=== PATIENT | female | born 1980 | race Caucasian/White ===

== ENCOUNTER 2023-06-08 13:36 | Emergency (ER) | payer SELFPAY ==
[~2023-06-08] VITALS: Ht 154.9 cm; Wt 72.6 kg
[2023-06-08 13:40] VITALS: BP 108/57; PULSE 90; RESP 15; TEMP 97.5; O2SAT 100
[2023-06-08 14:24] LABS: BASOPHILS % 0.5 % (0.0-2.0); EOSINOPHILS % 0.7 % (0.0-5.0); HEMATOCRIT. 32.6 % (36.0-48.0); LYMPHOCYTES % 25.2 % (20.0-50.0); MEAN CORPUSCULAR HEMOGLOBIN 30.7 pg (28.0-32.0); MEAN CORPUSCULAR HGB CONC 33.7 g/dL (31.0-37.0); MEAN PLATELET VOLUME 7.5 fl (7.4-10.4); MONOCYTES % 7.6 % (2.0-8.0); PLATELET 282 x1000/uL (130-400); RED BLOOD CELL COUNT 3.59 mill/uL (4.2-5.4); RED CELL DISTRIBUTION WIDTH 14.5 % (11.6-14.6); WHITE BLOOD COUNT 7.6 x1000/uL (4.5-11.0)
[2023-06-08 14:38] LABS: HCG SCREEN NEGATIVE; INR 0.9; PROTHROMBIN TIME 10.5 sec (9.6-11.0)
[2023-06-08 14:39] LABS: ALANINE AMINOTRANSFERASE 15 IU/L (10-49); ALBUMIN 4.1 g/dL (3.2-4.8); ASPARTATE AMINOTRANSFERASE 17 IU/L (<34); BILIRUBIN TOTAL 0.4 mg/dL (0.1-1.0); CALCIUM 8.6 mg/dL (8.7-10.4); CARBON DIOXIDE 28 mEq/L (21-32); CHLORIDE 107 mEq/L (98-107); GLUCOSE 86 mg/dL (70-105); PROTEIN TOTAL 6.9 g/dL (6.0-8.3); SODIUM 138 mEq/L (136-145); UREA NITROGEN BLOOD 18 mg/dL (9-23)
[2023-06-08 14:47] LABS: TROPONIN I HIGH SENSITIVITY < 4 ng/L (3.0-34)
[2023-06-08 15:22] LABS: CLARITY URINE CLOUDY (CLEAR); COLOR URINE YELLOW (YELLOW); GLUCOSE URINE NEGATIVE (NEGATIVE); KETONES URINE NEGATIVE (NEGATIVE); LEUKOCYTE ESTERASE URINE NEGATIVE (NEGATIVE); NITRITE URINE NEGATIVE (NEGATIVE); OCCULT BLOOD URINE 1+ (NEGATIVE); PROTEIN URINE NEGATIVE (NEGATIVE); SPECIFIC GRAVITY URINE 1.022 (1.005-1.030); UROBILINOGEN URINE 0.2 E.U./dL (0.2-1.0)
[2023-06-08 15:48] LABS: BACTERIA URINE 3+; SQUAMOUS EPITHELIAL CELL URINE NONE SEEN /lpf (RARE/1+); WBC URINE 0-2 /hpf (0-2); YEAST URINE NONE SEEN
[2023-06-08] MEDS: SODIUM CHLORIDE 0.9% IV ONE (20:51)
[2023-06-08] MEDS: MAGNESIUM/ALUMINUM HYDROXIDE/SIMETHICONE 30ML UDC PO ONE (21:09)
[2023-06-08] MEDS: FAMOTIDINE 20MG TABLET PO ONE (21:09)
[2023-06-08] MEDS ORDERED: FAMO-135 PO (21:14)
[2023-06-08] MEDS: ACETAMINOPHEN 325MG TABLET PO ONE (21:18)
== END 2023-06-08 22:29 | disposition home or self-care (01) ==
LOC: ER 17:02
DX: R10.30 Lower abdominal pain, unspecified (principal)
CPT/HCPCS: 99285; 71045; 80053; 81003; 84703; 83690; 85025; 85610; 84484; 36415; 93005; J7030